=== PATIENT | female | born 1955 | race Caucasian/White ===

== ENCOUNTER 2017-01-15 12:35 | Day surgery (SDC) | payer OTHER ==
--- NOTE | 2016-11-06 12:57 | HPN ---
Date/Time of Note Date/Time of Note DATE: 11/06/16 TIME: 12:57 Interval H&P Admission Note Pt. seen H&P reviewed: No system changes CINDY VALENCIA MD Nov 06, 2016 12:57
[~2017-01-15] VITALS: Ht 157.5 cm; Wt 95.0 kg
[2017-01-15] VITALS (10 sets, daily range): BP systolic 123–153; BP diastolic 67–80; PULSE 73–94; RESP 16–29; Ht 157.5 cm; Wt 95.0 kg
--- NOTE | 2017-01-15 12:57 | HPN ---
Date/Time of Note Date/Time of Note DATE: 01/15/17 TIME: 12:56 Interval H&P Admission Note Pt. seen H&P reviewed: No system changes CINDY VALENCIA MD Jan 15, 2017 12:57
[2017-01-15] MEDS ORDERED: TRAM50TA2 PO (14:03)
--- NOTE | 2017-01-15 14:17 | RADRPT ---
PROCEDURE: XR Chest. CLINICAL INDICATION: Preoperative evaluation. TECHNIQUE: Chest x-ray, single view. COMPARISON: None. FINDINGS: The cardiomediastinal silhouette is normal. The lungs are clear. There is no evidence of pulmonary consolidation or large pleural effusion. Skeletal structures and upper abdomen are unremarkable. IMPRESSION: Unremarkable chest x-ray. RPTAT: HLST .Parris Martino MD, MD Date Time Electronically viewed and signed by .Parris Martino MD, on 01/15/2017 14:16 .T/
[2017-01-15] MEDS ORDERED: LIDOCAINE 2% (SDV) 5 ML INJ ONE (15:47)
[2017-01-15] MEDS ORDERED: MIDAZOLAM 1 MG/ML 2 ML INJ ONE (15:47)
[2017-01-15] MEDS ORDERED: PROPOFOL 20 ML ONE (15:47)
[2017-01-15] MEDS ORDERED: CEFAZOLIN 1 GM INJ ONE (16:01)
[2017-01-15] MEDS ORDERED: FENTAnyl 50 MCG/ML VIAL ONE (16:06)
[2017-01-15] MEDS ORDERED: FAMOTIDINE 20 MG INJ ONE (16:07)
[2017-01-15] MEDS ORDERED: DEXAMETHASONE 4 MG/ML 1 ML INJ ONE (16:07)
[2017-01-15] MEDS ORDERED: ONDANSETRON 4 MG INJ ONE (16:07)
[2017-01-15] MEDS ORDERED: BUPIVACAINE 0.5% (SDV) 30 ML INJ ONE (16:31)
[2017-01-15] MEDS ORDERED: OXYCODONE/ACETAMINOPHEN (5/325) TAB ONE (16:59)
[2017-01-15] MEDS ORDERED: PROCHLORPERAZINE 10 MG INJ IV PRN (17:00)
[2017-01-15] MEDS ORDERED: HYDROmorphONE (0.2 MG/ML) 10ML SYG IV PRN (17:00)
[2017-01-15] MEDS ORDERED: FENTAnyl 50 MCG/ML VIAL IV PRN (17:00)
[2017-01-15] MEDS ORDERED: ONDANSETRON 4 MG INJ IV PRN (17:00)
[2017-01-15] MEDS ORDERED: DIPHENHYDRAMINE 50 MG INJ IV PRN (17:00)
[2017-01-15] MEDS ORDERED: OXYCODONE/ACETAMINOPHEN (5/325) TAB PO PRN (17:00)
[2017-01-15] MEDS ORDERED: MEPERIDINE 25 MG INJ IV PRN (17:00)
--- NOTE | 2017-01-16 09:16 | OPR ---
DATE OF OPERATION: 01/15/2017 SURGEON: Jacob Arredondo MD ANESTHESIA: General. PREOPERATIVE DIAGNOSES: Retained hardware right leg after open tibia ankle fracture with locked int ramedullary nailing with distal screws and additional 2 cannulated screws in the distal tibia. POSTOPERATIVE DIAGNOSES: Retained hardware right leg after open tibia ankle fracture with locked in tramedullary nailing with distal screws and additional 2 cannulated screws in the distal tibia. PROCEDURE PERFORMED 1. Removal of hardware from right leg, intramedullary locked nail, a total of 4 screws were removed from the distal tibia. 2. Interpretation of intraoperative fluoroscopy x-ray. ESTIMATED BLOOD LOSS: 25 mL. TOURNIQUET TIME: 25 minutes. COMPLICATIONS: None. DESCRIPTION OF PROCEDURE: Patient taken to operating room and general anesthetic given with intubat ion. Two grams of Kefzol given for prophylaxis. Tourniquet applied on the right thigh. Right leg prepped and draped in the usual sterile manner, exsanguinated with Esmarch bandage, tourniquet infla misa to 300 mmHg. The patient complained of prominent screw head on the distal leg, primarily from t he 3 screws that were part of the intramedullary nail. Under x-ray visualization, small incisions w ere made and the 3 screws from the nail were removed and one additional posterior screw that was pro truding from the bone was likewise removed. The remaining screw was buried deep into the bone and w as not palpable. Wound was copiously irrigated with antibiotic solution. Hemostasis ascertained us ing cautery. Skin closed with bhavin. Compression bandage applied. Anesthetic reversed. The pat ient taken to recovery room in stable condition. Dictated By: JACOB BALL/NTS Conf#: [id number] DID#: [id number]
--- NOTE | 2017-01-17 21:13 | RADRPT ---
PROCEDURE: RF Right tibia-fibula CLINICAL INDICATION: ORIF TECHNIQUE: Four x-ray images were obtained intraoperatively during an ORIF procedure. COMPARISON: None available FINDINGS: 5 the images were obtained intraoperatively for localization during an ORIF procedure. The procedur e was performed by Dr. Arredondo. Images were obtained for localization intraoperatively. 40.9 secon ds of fluoroscopy time was utilized for the procedure. An intramedullary nail and a transverse screw in place through the satisfactorily aligned osseous fragments. IMPRESSION: Xray images obtained intraoperatively for localization during a distal right tibia ORIF procedure. Physician Keith Date Time Electronically viewed and signed by Physician Keith on 01/17/2017 21:13 /
== END 2017-01-15 18:42 | disposition home or self-care (01) ==
LOC: SDS 12:35
PROVIDERS: ATTEND Specialist
DX: T84.84XA Pain due to internal orthopedic prosthetic devices, implants and grafts, initial encounter (principal); J45.909 Unspecified asthma, uncomplicated; I69.351 Hemiplegia and hemiparesis following cerebral infarction affecting right dominant side; Z88.2 Allergy status to sulfonamides; Y83.8 Other surgical procedures as the cause of abnormal reaction of the patient, or of later complication, without mention of misadventure at the time of the procedure; Y92.9 Unspecified place or not applicable
CPT/HCPCS: 20680; 71010; 73590; 88300; J0690; J1100; J2250; J2405; J3010; Z7512; Z7610